=== PATIENT | male | born 1960 | race African-American/Black ===

== ENCOUNTER → 2019-08-29 10:07 | Outpatient (CLI) | payer OTHER, SELFPAY ==
[2019-08-29 10:42] LABS: Basophils % 0.6 % (0.1-2.0); Eosinophils # 0.3 K/mm3 (0.0-0.4); Eosinophils % 4.1 % (0.1-12.0); Hematocrit 42.3 % (42.0-52.0); Hemoglobin 13.8 g/dL (14.1-18.0); Lymphocytes # 1.6 K/mm3 (0.7-4.5); Lymphocytes % 24.7 % (10-50); Mean Corpuscular HGB Conc 32.6 g/dL (31.8-35.4); Mean Corpuscular Hemoglobin 27.5 pg (27.0-31.2); Mean Corpuscular Volume 84.5 fl (80-94); Monocytes # 0.3 K/mm3 (0.1-1.0); Monocytes % 4.6 % (1.7-9.3); Neutrophils # 4.4 K/mm3 (1.8-7.8); Neutrophils % 65.9 % (37.0-80.0); Platelet Count 357 K/mm3 (142-424); Red Blood Count 5.01 M/mm3 (4.60-6.20); Red Cell Distribution Width 15.6 % (11.5-17.5); White Blood Count 6.6 K/mm3 (4.8-10.8)
[2019-08-29 11:27] LABS: Alanine Aminotransferase 45 U/L (12-78); Albumin Level 4.6 g/dl (3.5-5.0); Albumin/Globulin Ratio 1.4 (1.1-1.8); Alkaline Phosphatase 130 U/L (38-126); Anion Gap 10.7 mEq/L (5-15); Aspartate Amino Transferase 38 U/L (17-59); Bilirubin,Total 0.4 mg/dl (0.2-1.3); Blood Urea Nitrogen 10 mg/dl (9-20); Calcium 9.7 mg/dl (8.4-10.2); Carbon Dioxide 30 mmol/L (22.0-30.0); Chloride 104 mmol/L (98-107); Estimated Glomerular Filt Rate 44 ml/min (>60); GFR (African American) 53 ML/MIN (>60); Globulin 3.4 g/dL (1.3-3.2); Glucose 114 mg/dl (74-100); Potassium 3.7 mmoL/L (3.5-5.1); Sodium 141 mmol/L (136-145)
[2019-08-29 11:56] LABS: Thyroid Stimulating Hormone 1.35 uIU/mL (0.465-4.68)
[2019-08-30 15:22] LABS: Testosterone,Total 315 ng/dL (264-916)
== END ==
PROVIDERS: Visit Provider Internal Medicine Adolescent Medicine
DX: R79.89 Other specified abnormal findings of blood chemistry (principal); R53.83 Other fatigue; R53.81 Other malaise
CPT/HCPCS: 36415; 80053; 84403; 84443; 85025

== ENCOUNTER → 2019-10-31 16:36 | Outpatient (CLI) | payer OTHER, SELFPAY ==
[2019-10-31 18:51] LABS: Chloride 101 mmol/L (98-107); Potassium 4.2 mmoL/L (3.5-5.1); Sodium 140 mmol/L (136-145)
[2019-10-31 18:54] LABS: Anion Gap 15.2 mEq/L (5-15); Blood Urea Nitrogen 12 mg/dl (9-20); Carbon Dioxide 28 mmol/L (22.0-30.0); Estimated Glomerular Filt Rate 34 ml/min (>60); GFR (African American) 41 ML/MIN (>60); Glucose 77 mg/dl (74-100)
[2019-10-31 19:10] LABS: 25-OH Vitamin D, Total 33.3 ng/mL (30-100)
== END ==
PROVIDERS: Visit Provider Internal Medicine Adolescent Medicine
DX: I10 Essential (primary) hypertension (principal); N40.1 Benign prostatic hyperplasia with lower urinary tract symptoms; E55.9 Vitamin D deficiency, unspecified
CPT/HCPCS: 36415; 80048; 82306

== ENCOUNTER → 2019-12-16 08:04 | Outpatient (CLI) | payer OTHER, SELFPAY ==
--- NOTE | 2019-12-16 08:05 | CA_ITS ---
APPROVED REPORT Upholstery Technician: Halley Madison RVT Study Quality: Good Indications: CKD,HTN Risk Factors Hypertension Renal Artery Doppler Origin (R) 118.7/ cm/sec Proximal (R) 96.8/ cm/sec Mid (R) 94.2/ cm/sec Distal (R) 78.5/ cm/sec Renal Aorta Ratio (R) 1.21 Segmental A. (R) 30.8/14.6 cm/sec RI: 0.52 Segmental A. Sup (R) 30.8/14.6 cm/sec Segmental A. Mid (R) 27.4/6.0 cm/sec Segmental A. Inf (R) 30.1/9.4 cm/sec Origin (L) 86.4/ cm/sec Proximal (L) 86.4/ cm/sec Mid (L) 109.9/ cm/sec Distal (L) 95.6/ cm/sec Renal Aorta Ratio (L) 1.12 Segmental A. (L) 47.8/20.8 cm/sec RI: 0.56 Segmental A. Sup (L) 47.8/20.8 cm/sec Segmental A. Mid (L) 37.3/16.1 cm/sec Segmental A. Inf (L) 39.3/19.2 cm/sec Renal Measurements Kidney Size (R) 10.2x6.1 cm Cortical Thickness (R) 1.4 cm Kidney Size (L) 10.5x5.4 cm Cortical Thickness (L) 1.4 cm Findings Study suggests no evidence of stenosis in the bilateral renal arteries. Study suggests no evidence of hydronephrosis. RI is 0.8 on the right and 0.6 on the left. Conclusion Study suggests no evidence of stenosis in the bilateral renal arteries. Study suggests no evidence of hydronephrosis. RI is 0.8 on the right and 0.6 on the left. Electronically signed by : Vargas Sullivan MD 12/16/2019 15:52:41
== END ==
PROVIDERS: PCP Internal Medicine Adolescent Medicine; Visit Provider Urology
DX: N18.9 Chronic kidney disease, unspecified (principal); R79.89 Other specified abnormal findings of blood chemistry
CPT/HCPCS: 93976

== ENCOUNTER → 2021-12-13 12:32 | Outpatient (CLI) | payer OTHER, SELFPAY ==
[2021-12-13 12:41] LABS: Microscopic, Urine URINE MICROSCOPIC (MICROSCOPIC)
[2021-12-13 13:03] LABS: Basophils # 0.1 K/mm3 (0-0.2); Basophils % 0.8 % (0.1-2.0); Eosinophils # 0.3 K/mm3 (0.0-0.4); Eosinophils % 4.2 % (0.1-12.0); Hematocrit 42.8 % (42.0-52.0); Hemoglobin 13.4 g/dL (14.1-18.0); Lymphocytes # 1.7 K/mm3 (0.7-4.5); Lymphocytes % 24.4 % (10-50); Mean Corpuscular HGB Conc 31.3 g/dL (31.8-35.4); Mean Corpuscular Hemoglobin 29.5 pg (27.0-31.2); Mean Corpuscular Volume 94.2 fl (80-94); Mean Platelet Volume 8.6 fl (7.4-10.4); Monocytes # 0.4 K/mm3 (0.1-1.0); Monocytes % 5.9 % (1.7-9.3); Neutrophils # 4.6 K/mm3 (1.8-7.8); Neutrophils % 64.7 % (37.0-80.0); Platelet Count 369 K/mm3 (142-424); Red Blood Count 4.55 M/mm3 (4.60-6.20); Red Cell Distribution Width 14.8 % (11.5-17.5); White Blood Count 7.1 K/mm3 (4.8-10.8)
[2021-12-13 13:09] LABS: Appearance,Urine CLEAR (Clear); Bilirubin,Urine Negative (Negative); Blood, Urine Negative (Negative); Color,Urine YELLOW (Yellow); Glucose,Urine (UA) Negative (Negative); Ketones,Urine Negative (Negative); Leukocyte Esterase,Urine Negative (Negative); Nitrate,Urine Negative (Negative); Protein,Urine 1+ (Negative); Specific Gravity, Urine 1.015 (1.005-1.030)
[2021-12-13 13:20] LABS: Bacteria,Urine Trace /lpf; Squamous Epithelial Cell,Urine Occasional #/hpf (0-5)
[2021-12-13 13:32] LABS: Creatinine,Urine Random 220 mg/dL (Not Estab.)
[2021-12-13 13:34] LABS: Albumin Level 4.1 g/dl (3.5-5.0); Anion Gap 11.8 mEq/L (5-15); Blood Urea Nitrogen 15 mg/dl (9-20); Calcium 9.1 mg/dl (8.4-10.2); Carbon Dioxide 28 mmol/L (22.0-30.0); Chloride 105 mmol/L (98-107); Estimated Glomerular Filt Rate 32 ml/min (>60); GFR (African American) 39 ML/MIN (>60); Glucose 143 mg/dl (74-100); Phosphorous 3.2 mg/dl (2.5-4.5); Potassium 3.8 mmoL/L (3.5-5.1); Sodium 141 mmol/L (136-145)
[2021-12-13 13:46] LABS: Intact Parathyroid Hormone 78.3 pg/mL (7.5-53.5)
[2021-12-13 13:52] LABS: 25-OH Vitamin D, Total 71.4 ng/mL (30-100)
== END ==
PROVIDERS: PCP Internal Medicine Adolescent Medicine; Visit Provider Internal Medicine Nephrology
DX: N18.4 Chronic kidney disease, stage 4 (severe) (principal)
CPT/HCPCS: 36415; 80069; 81001; 82306; 82570; 83970; 84155; 85025

== ENCOUNTER → 2021-12-16 12:36 | Outpatient (POV) | payer OTHER, SELFPAY | PROVIDERS: Visit Provider Internal Medicine Nephrology | DX: Z00.00 Encounter for general adult medical examination without abnormal findings (principal) ==

== ENCOUNTER → 2022-01-13 15:27 | Outpatient (CLI) | payer OTHER, SELFPAY ==
--- NOTE | 2022-01-13 15:36 | US_ITS ---
FINAL REPORT CLINICAL HISTORY: CHRONIC RENAL DISEASE STAGE IV; HYPERTENSION FINDINGS: US RETROPERITONEAL The right kidney measures 10.8 cm in length. It is normal in echogenicity. There is no hydronephrosis. The left kidney measures 10.5 cm in length. It is normal in echogenicity. There is no hydronephrosis. The spleen is unremarkable. IMPRESSION: Unremarkable exam. Reviewed, Interpreted and Dictated by Clarke Nj MD Transcribed by Louisa Turner Authenticated and [facility]
== END ==
PROVIDERS: PCP Internal Medicine Adolescent Medicine; Visit Provider Internal Medicine Nephrology
DX: N18.4 Chronic kidney disease, stage 4 (severe) (principal)
CPT/HCPCS: 76770

== ENCOUNTER → 2022-04-21 12:24 | Outpatient (CLI) | payer OTHER, SELFPAY ==
[2022-04-21 13:35] LABS: Albumin Level 4.3 g/dl (3.5-5.0); Chloride 102 mmol/L (98-107); Potassium 3.4 mmoL/L (3.5-5.1); Sodium 139 mmol/L (136-145)
[2022-04-21 13:38] LABS: Anion Gap 12.4 mEq/L (5-15); Blood Urea Nitrogen 16 mg/dl (9-20); Calcium 8.9 mg/dl (8.4-10.2); Carbon Dioxide 28 mmol/L (22.0-30.0); Estimated Glomerular Filt Rate 34 ml/min (>60); GFR (African American) 41 ML/MIN (>60); Glucose 101 mg/dl (74-100); Phosphorous 3.2 mg/dl (2.5-4.5)
[2022-04-21 14:27] LABS: Creatinine,Urine Random 164 mg/dL (Not Estab.)
[2022-04-21 16:28] LABS: Microalbumin/Creatinine Ratio 352.8
[2022-04-23 21:07] LABS: Cystatin C 1.26 mg/L (0.72-1.16)
== END ==
LOC: LAB 12:26
PROVIDERS: PCP Internal Medicine Adolescent Medicine; Visit Provider Internal Medicine Nephrology
DX: N18.4 Chronic kidney disease, stage 4 (severe) (principal); N18.32 Chronic kidney disease, stage 3b; I10 Essential (primary) hypertension; N25.0 Renal osteodystrophy; R80.1 Persistent proteinuria, unspecified
CPT/HCPCS: 36415; 80069; 82043; 82570; 82610

== ENCOUNTER → 2022-04-24 15:46 | Outpatient (POV) | payer OTHER, SELFPAY | PROVIDERS: Visit Provider Internal Medicine Nephrology | DX: Z00.00 Encounter for general adult medical examination without abnormal findings (principal) ==

== ENCOUNTER → 2022-07-28 14:46 | Outpatient (POV) | payer OTHER, SELFPAY | PROVIDERS: Visit Provider Internal Medicine Nephrology | DX: Z00.00 Encounter for general adult medical examination without abnormal findings (principal) ==

== ENCOUNTER → 2022-09-01 15:00 | Outpatient (CLI) | payer OTHER, SELFPAY | LOC: SL 15:00 | PROVIDERS: PCP Internal Medicine Adolescent Medicine; Visit Provider Internal Medicine Adolescent Medicine | DX: G47.30 Sleep apnea, unspecified (principal) | CPT/HCPCS: G0399 ==

== ENCOUNTER 2023-01-28 08:39 | Day surgery (SDC) | payer OTHER, SELFPAY ==
[2022-11-19 15:21] VITALS: BMI 36.8
[2023-01-28] VITALS (7 sets, daily range): BP systolic 112–151; BP diastolic 61–96; PULSE 72–87; RESP 16–20; TEMP 36.6; O2SAT 94–100
--- NOTE | 2023-01-28 11:38 | HMH.SCOPE ---
Procedure: Date: 01/28/23 Patient Date of :: 1960 Procedure Performed:: Colonoscopy Indications:: Screening colonoscopy Performing Provider:: Trace Justin MD Referring Provider:: Danial Win MD Sedation:: See RN records Procedure:: After placing the patient in the left lateral decubitus position, the colonoscopy was gently inserted into the rectum and under direct visualization advanced to the cecum which was identified by transillumination in the right lower quadrant, identification of the ileocecal valve, appendiceal orifice, and cecal strap. Color, texture, mucosa, and anatomy of the colon were carefully examined with the scope. Findings:: Anal canal: normal Rectum: Hemorrhoids Sigmoid colon: Diverticulosis. Pedunculated polyp 11-12 mm in size. Removed with hot snare polypectomy. Fair preparation Descending colon: Seven polyps measuring between 5-12 mm in size. Removed with hot snare polypectomy. One 5 mm polyp was not retrieved. Diverticulosis Splenic flexure: normal Transverse colon: Two polyps less than 10 mm in size. Removed with hot snare polypectomy Hepatic flexure: normal Ascending colon: normal without polyps or inflammatory changes Cecum: Polypoid lesion less than 10 mm in size. Removed completely by snare polypectomy. Fair bowel preparation Terminal ileum: not visualized Impression: Multiple colon polyps (11 polyps) Diverticulosis Fair preparation Colon spasms Recommendations:: Await pathology results Higher fiber diet Repeat colonoscopy in 1 year Complications:: None Estimated blood obtained (mL): 0 Colonoscopy Component Colonoscopy Component Was a colonoscopy performed during today's procedure?: Yes Recommended follow up colonoscopy of at least 10 years?: Yes
--- NOTE | 2023-01-28 12:22 | EXP.ANES.CKL ---
[facility] Disclaimer: The information contained in this section may have been updated after the patient was seen, as this information can be updated by other users. Medical History Coronary artery disease History of gastroesophageal reflux (GERD) Hyperlipidemia Hypertension Insomnia Kidney disease, chronic, stage III (GFR 30-59 ml/min) Pancreatitis Surgical History History of nasal surgery Family History Other Family history of diabetes mellitus type II Family history of heart disease Family history of hypertension Family history of myocardial infarction Social History Smoking Status: Former smoker tobacco type: smokeless tobacco how long ago did patient quit smokin years ago alcohol intake: never substance use type: denies use current occupational status: employed Travel in the last 8 weeks: Inside the [facility] household members: none housing: house lives independently: Yes marital status: single education level: high school service: Yes ([employer]) retirement: No caffeine: Yes special martin needs: No agree to transfusion: No do you feel safe at home: Yes victim of physical abuse: No victim of emotional abuse: No victim of sexual abuse: No would you like helpful sources: No [facility] Anesthesia Checklist Patient Identification Patient Identification: Arm Band and Verbal (Name & ) Structural Data Admitted From: Home Planned Operative Procedure/s: colonoscopy Consent for Planned Operative Procedure(s) Verified: Yes Verified Documents: Surgical Consent and History and Physical NPO Status Verified Time NPO: 23:00 Additional verifications Patient : No Anesthesia Reactions: No Hx Blood Transfusions: No Blood Transfusion Reaction: No Cephalosporin Allergy: No Previous Colonoscopy: No Cardiovascular Assessment Heart Sounds: S1 & S2 Pulse Rhythm: Irregular Peripheral Edema: No Airway Assessment Mallampati Score:: Class II C-Spine Mobility Assessed: Yes TMJ Mobility Assessed: Yes Dentition: Good Dentition (Nothing loose per pt.) Neurological Assessment Level of Consciousness: Awake Hx Seizures: No Numbness or tingling in extremities: No Anesthesia Plan Anesthesia Risk discussed: Yes Anesthesia Plan: Verified ASA Class: II Anesthesia Type: MAC
--- NOTE | 2023-01-28 12:24 | EXP.ANES.I ---
[facility] Anesthesia Record Part I Anesthesia Record I Intake, IV Amount: 400 Hydration: Adequate Estimated blood loss (mL): 0 Urine output (mL): 0 Blood Products used (#): none Blood Pressure: 132/87 SaO2: 94 Pulse Rate: 84 Airway Patency: Patent Respiratory Rate: 20 Temperature: 97.8 F Patient is:: Awake, Drowsy and Stable Stable to PACU at:: 11:43
== END 2023-01-28 12:23 | disposition home or self-care (01) ==
PROVIDERS: PCP Internal Medicine Adolescent Medicine; Visit Provider Internal Medicine
PROC: 0DJD8ZZ Inspection of Lower Intestinal Tract, Via Natural or Artificial Opening Endoscopic (ICD-10-PCS; CPT 45378; principal; 2023-01-28 10:00)
DX: Z12.11 Encounter for screening for malignant neoplasm of colon (principal); K64.8 Other hemorrhoids; K57.30 Diverticulosis of large intestine without perforation or abscess without bleeding; D12.4 Benign neoplasm of descending colon; D12.0 Benign neoplasm of cecum; D12.3 Benign neoplasm of transverse colon; D12.5 Benign neoplasm of sigmoid colon
CPT/HCPCS: 45385

== ENCOUNTER 2024-08-11 10:42 | Outpatient (CLI) | payer MEDICARE, SELFPAY ==
--- OUTSIDE RECORDS SUMMARY | 2024-08-11 10:47 | XMS_ITS | Encounter Summary ---
Author Name [facility] [place] [facility] [place] [facility] [place] Address [address] [place] [address] Selected Encounter This section includes the information on record at [place] for the Encounter. Date/Time Encounter Type Encounter Description Reason Provider Source Apr 05, 2024 11:10 AM Outpatient Encounter ADMIN PAT ACTIVTIES (MASNONCT) DINORAH KNOWLESE Encounter Template Text not used by [facility] Encounter Notes: All associated encounter notes This section contains the clinical notes associated to the Encounter. Date/Time Encounter Note(s) Provider Source Apr 05, 2024 11:11 AM [facility] MARIA M TRY NOTE: LOCAL TITLE: V9 [facility] NICOLE TELEPHONE APPOINTMENT NOTE STANDARD TITLE: [employer] [facility] REGISTRY NOTE DATE OF NOTE: APR 05, 2024@11:11 ENTRY DATE: APR 05, 2024@11:11:11 AUTHOR: DINORAH KNOWLES EXP COSIGNER: URGENCY: STATUS: COMPLETED 64y.o. MALE patient presents for Toxic Exposure Screen via telephone in lieu of face to face. Spoke to patient and confirmed patient identity using patient identifiers listed below: Patient Identifiers used: Full Name and Address, , Full SSN Lasdt 4: 1435 : 1960 Patient's verbal consent obtained: Yes Patient is in a safe and private Location: Yes Toxic Exposure Screening: The Pratts/caregiver was asked if they believe the experienced any toxic exposure(s), such as Airborne Hazards and Open [place], [place] War related exposures, Agent [place], Radiation, contaminated water at [place] or other such exposures, while serving in the Armed Forces. Pratts has no concerns about toxic exposure(s) while serving in the Armed Forces. The Pratts/caregiver was informed that we will continue to ask this screening question every 5 years. They can contact their provider/healthcare team if they have concerns about exposures and would like to be screened sooner. Printed information was offered and provided if desired. /faith/ DINORAH KNOWLES MD,MPH [facility] Signed: 04/05/2024 11:12 DINORAH KNOWLES-JODY [facility]
--- OUTSIDE RECORDS SUMMARY | 2024-08-11 10:48 | XMS_ITS | Continuity of Care Document ---
Author Organization [facility] Phone Care Team Providers Care Industrial Sweeper Cleaner Name Role Phone CASE, JOSEPH Kimbrough Admitting CASE, JOSEPH W Primary Attending CASE, JOSEPH W Surgeon MADHAVI DICKERSON Primary Care ALLERGIES AND ADVERSE REACTIONS ALLERGIES AND ADVERSE REACTIONS Code System Allergy Substance Adverse Reaction Date Reaction (Severity) Comment Status Reported By Updated By No Known Allergies [id number] on May 20, 2024 4:21:47 PM [place] RESULTS Patient: FANNY Zee Date of : 1960 0 LABORATORY RESULTS Information is not available LABORATORY NARRATIVE RESULTS Information is not available RADIOLOGY RESULTS Information is not available PATHOLOGY NARRATIVE RESULTS ORDER 200: PATHOLOGY SPECIME N (LOINC: 71600-3) ORDER DATE: May 20, 2024 5:33:00 PM UTC Specimen Source: PATH Specimen Type: Refer to path ology laboratory PERFORMING LAB: [address] [id number] Final Result Date: May 27, 2024 2:53:00 PM UTC (TECH: [facility] [place] TEST: PATHOLOGY SPECIMEN SEE SCANNED RPT MICROBIOLOGY RESULTS No Micro Labs/Results Exist for Patient BLOOD ADMIN RESULTS Information is not available MEDICATIONS HOME MEDICATIONS Status [facility] Medication Dose Route Frequency Dates Comments Reported By Updated By Active [id number] 17574 64444 1 Carvedilol Oral Tablet 25 MG 25.0 MG ORAL BID Last Dose: May 19, 2024 5:00:00 PM [place] [id number] on May 20, 2024 4:23:19 PM [facility] Active 238343 46520 44185 5 Sertraline HCl Oral Tablet 100 MG 100.0 MG ORAL DAILY Last Dose: May 19, 2024 1:00:00 PM [place] [id number] on May 20, 2024 4:24:10 PM UTC Active 403584 34895 09026 0 Wellbutrin XL Oral Tablet Extended Release 24 Hour 300 MG 300.0 MG ORAL DAILY Last Dose: May 19, 2024 1:00:00 PM [facility] [id number] on May 20, 2024 4:24:49 PM [facility] Active 803080 45107 41173 2 Omeprazole Oral Capsule Delayed Release 20 MG 20.0 MG ORAL DAILY Last Dose: May 19, 2024 1:00:00 PM [facility] [id number] on May 20, 2024 4:23:57 PM [facility] Active 97888 11108 1 Aspirin 81 Oral Tablet Chewable 81 MG 81.0 MG ORAL DAILY Last Dose: May 19, 2024 1:00:00 PM [facility] [id number] on May 20, 2024 4:22:50 PM [facility] Active 861754 15771 53160 6 Venlafaxine HCl ER Oral Capsule Extended Release 24 Hour 37.5 MG 37.5 MG ORAL DAILY Last Dose: May 19, 2024 1:00:00 PM [facility] [id number] on May 20, 2024 4:24:40 PM [facility] Active 226715 11555 71351 2 Valsartan Oral Tablet 160 MG 160.0 MG ORAL DAILY Last Dose: May 19, 2024 1:00:00 PM [facility] [id number] on May 20, 2024 4:24:31 PM [facility] Active 214699 35219 76185 1 traZODone HCl Oral Tablet 100 MG 100.0 MG ORAL TIDPRN Last Dose: May 19, 2024 1:00:00 AM [facility] [id number] on May 20, 2024 4:24:21 PM [facility] Active 321816 69246 09111 6 Atomoxetine HCl Oral Capsule 100 MG 600.0 MG ORAL DAILY Last Dose: May 19, 2024 1:00:00 PM [facility] [id number] on May 20, 2024 4:23:48 PM [facility] Active 723859 17506 67012 0 Atorvastatin Calcium Oral Tablet 20 MG 20.0 MG ORAL DAILY Last Dose: May 19, 2024 1:00:00 PM [facility] [id number] on May 20, 2024 4:23:02 PM [facility] DISCHARGE MEDICATIONS Status [facility] Medication Dose Route Frequency Dates Comments Physician Updated By No Discharge Medication Info rmation Available INPATIENT MEDICATIONS Status [facility] Medication Dose Route Frequency Rat e Quantity Dates Comments Physician Updated By Discont inued [id number] 7803 8019 704 LACTATED RINGERS SOLN 1000. 0 ML INTRAV ENOUS ONE TIME ADMINISTRA TION (UNSCHEDUL ED) 25.0 ML/HR Start: 2024 9:44:0 0 PM UTC End: 2024 10:47: 00 PM UTC CONY BLISS [id number] on May 21, 2024 5:25:00 AM UTC Discont inued 6374951 8201 8004 904 sodium chloride 0.9% SOLN 1000. 0 ML INTRAV ENOUS ONE TIME ADMINISTRA TION (UNSCHEDUL ED) 25.0 ML/HR Start: 2024 9:44:0 0 PM UTC End: 2024 10:47: 00 PM UTC DEPJoey BLISS [id number] on May 21, 2024 5:25:00 AM UTC Discont inued 6643368 1356 9226 720 labetalol (TRANDATE) MDV 5 MG/ML SOLN 100.0 MG INTRAV ENOUS ONE TIME ONLY (SCHEDULED DOSE) Start: 2024 4:17:0 0 PM UTC End: 2024 4:17:0 0 PM UTC CASE JOSEPH Kimbrough INTERF ED on May 20, 2024 4:19:00 PM UTC Discont inued 9613551 4278 9226 720 LABETALOL HCL 5 MG/ML SOLN 100.0 MG INTRAV ENOUS ONE TIME ONLY (SCHEDULED DOSE) 4.167 MG/HR Start: 2024 8:55:0 0 PM UTC End: 2024 8:56:4 7 PM UTC CASE JOSEPH W [id number] on May 20, 2024 8:56:00 PM UTC Discont inued 6940656 1120 5034 542 PROPOFOL 500 MG/50ML EMUL 500.0 MG INTRAV ENOUS ONE TIME ONLY (SCHEDULED DOSE) 20.833 MG/HR Start: 2024 8:55:0 0 PM UTC End: 2024 8:56:4 7 PM UTC CASE JOSEPH Kimbrough [id number] on May 20, 2024 8:56:00 PM UTC Discont inued 2413092 4329 3020 202 LIDOCAINE HCL 2 % SOLN 2.0 ML ONE TIME ONLY (SCHEDULED DOSE) 0.083 ML/HR Start: 2024 8:55:0 0 PM UTC End: 2024 8:56:4 7 PM UTC CASE JOSEPH Kimbrough [id number] on May 20, 2024 8:56:00 PM UTC Discont inued 028129 3242 8011 704 LACTATED RINGERS SOLN 1000. 0 ML IV CONTIN UOUS ONE TIME ONLY (SCHEDULED DOSE) Start: 2024 6:27:0 0 PM UTC End: 2024 6:27:0 0 PM UTC CASE JOSEPH Kimbrough INTERFAC ED on May 20, 2024 5:00:00 AM UT SOCIAL HISTORY SOCIAL HISTORY SNOMED-CT Social History Element Description Effective Dates Offered Cessation Comment UpdatedBy [id number] Current Tobacco smoking status Former Smoker [id number] on May 13, 2024 7:24:25 PM UT SOCIAL HISTORY - Gender Sex: Male SOCIAL HISTORY - Status : status i nformation is not available Intention in Next Year: intention information is not available SOCIAL HISTORY - Sexual Behavior Sexual Orientation Gender Identity SNOMED-CT Description SNO MED -CT Description Activity Level No of Partners Partner Type UpdatedBy Information is not available VITAL SIGNS PATIENT VITAL SIGNS This section displays the mo st recent value for each vital sign as of May 28, 2024 3:03:14 AM UT Loinc Code Vital Sign Activity Date Result Updated By 8302-2 Body height May 20, 2024 4:22:11 PM UT 172.72 cm (68.0 in) [id number] on May 20, 2024 4:22:11 PM [facility] 18765-1 Body mass index (BMI) [Ratio] May 20, 2024 4:22:11 PM UTC 41.264 kg/m2 [id number] on May 20, 2024 4:22:11 PM [facility] 3140-1 Body Surface Area Derived From Formula May 20, 2024 4:22:11 PM UTC 2.327 m2 [id number] on May 20, 2024 4:22:11 PM [facility] 49904-0 Body weight Measured May 20, 2024 4:22:11 PM [facility] 123.1 kg (271.0 lb) [id number] on May 20, 2024 4:22:11 PM [facility] PEDIATRIC GROWTH CHART - VITAL SIGNS This section displays Head C ircumference Percentile, Weight for Length Percentile and BMI Percentile Loinc Code Pediatric Measure Age (Months) Result Updat ed By No Pediatric Growth Chart Pe rcentile Information Available. PROCEDURES PATIENT PROCEDURES CODE SYSTEM DESCRIPTION STATUS PERFORMED DATE UPD ATED BY [id number] SNOMED-CT Colonoscopy completed May 20 5:00:00 AM [facility] [id number] on May 20, 2024 5:22:14 PM [facility] PROCEDURE NOTE Procedure Note information i s not available. HEALTH CONCERNS Problems Concern Status Health Concern problem infor mation not available. Smoking Status Status Years Used Consumed packs p er day Health Concern smoking histo ry information not available. Family History Concern Status Health Concern family histor y information not available. ENCOUNTERS ENCOUNTER INFORMATION Reason for Visit DX COLON Admission May 20, 2024 2:47:[address] [id number] Discharge May 20, 2024 10:47:00 PM [facility] DISCHARGED TO HOME OR SELF CARE ENCOUNTER DIAGNOSES Notes information is not gabrielle ilable. Code System Diagnosis Onset Date Diagnosis information is not available. ABSTRACT DIAGNOSES Code System Diagnosis Updated By Z12.11 ICD10 ENCOUNTER FOR SC REENING FOR MALIGNANT NEOPLASM OF COLON [id number] on May 24, 2024 2:35:22 PM [facility] Z86.0100 ICD10 PERSONAL HISTORY OF COLON POLYPS, UNSPECIFIED [id number] on May 24, 2024 2:35:22 PM [facility] Z12.11 ICD10 ENCOUNTER FOR SC REENING FOR MALIGNANT NEOPLASM OF COLON [id number] on May 24, 2024 2:35:22 PM [facility] D12.2 ICD10 BENIGN NEOPLASM OF ASCENDING COLON [id number] on May 24, 2024 2:35:22 PM [facility] K57.30 ICD10 DIVERTICULOSIS O F LARGE INTESTINE WITHOUT PERFORATION OR ABSCESS WITHOUT BLEEDING [id number] on May 24, 2024 2:35:22 PM [facility] I25.2 ICD10 OLD MYOCARDIAL INFARCTION AA [id number] on May 24, 2024 2:35:22 PM UT I25.10 ICD10 ATHEROSCLEROTIC HEART DISEASE OF [place] CORONARY ARTERY WITHOUT ANGINA PECTORIS [id number] on May 24, 2024 2:35:22 PM UTC E78.5 ICD10 HYPERLIPIDEMIA, UNSPECIFIED [id number] on May 24, 2024 2:35:22 PM UT G47.30 ICD10 SLEEP APNEA, UNSPECIFIED AAD 6617 on May 24, 2024 2:35:22 PM UTC K21.9 ICD10 GASTRO-ESOPHAGEA L REFLUX DISEASE WITHOUT ESOPHAGITIS [id number] on May 24, 2024 2:35:22 PM UT E66.01 ICD10 MORBID (SEVERE) OBESITY DUE TO EXCESS CALORIES [id number] on May 24, 2024 2:35:22 PM UT I12.9 ICD10 HYPERTENSIVE CHR ONIC KIDNEY DISEASE WITH STAGE 1 THROUGH STAGE 4 CHRONIC KIDNEY DISEASE, OR UNSPECIFIED CHRONIC KIDNEY DISEASE [id number] on May 24, 2024 2:35:22 PM UT N18.4 ICD10 CHRONIC KIDNEY D ISEASE, STAGE 4 (SEVERE) [id number] on May 24, 2024 2:35:22 PM [facility] Z79.82 ICD10 MANAGER FLIGHT (CURRENT) USE OF A SPIRIN [id number] on May 24, 2024 2:35:22 PM [facility] Z79.899 ICD10 OTHER MCC (CURRENT) DR UG THERAPY [id number] on May 24, 2024 2:35:22 PM [facility] CARE TEAM Care Industrial Sweeper Cleaner Role JOSEPH CASE Admitting JOSEPH WADDELL Primary Attending JOSEPH CASE Surgeon MADHAIV DICKERSON Primary Care CARE TEAM CARE yield engineer Role on Team Status Start Date End Date Update d By CASE JOSEPH ORTIZ Surgeon normal May 20, 2024 2:47:00 PM [facility] May 20, 2024 10:47:00 PM [facility] [id number] on May 24, 2024 2:35:33 PM [facility] JAYLA HEDNRICKSON PCP normal May 09 3:36:33 PM [facility] May 20, 2024 10:47:00 PM [facility] [id number] on May 24, 2024 2:35:33 PM [facility] CASE JOSEPH ORTIZ Attending normal May 09, 2024 3:36:33 PM [facility] May 20, 2024 10:47:00 PM [facility] [id number] on May 24, 2024 2:35:33 PM [facility] CASE JOSEPH ORTIZ Admitting normal May 09, 2024 3:36:33 PM [facility] May 20, 2024 10:47:00 PM [facility] [id number] on May 24, 2024 2:35:33 PM [facility]
--- OUTSIDE RECORDS SUMMARY | 2024-08-11 10:48 | XMS_ITS | Encounter Summary ---
Author Name [facility] [place] [facility] [place] Address [address] [place] [id number] Selected Encounter This section includes the information on record at [place] for the Encounter. Date/Time Encounter Type Encounter Description Reason Pro vider Source Aug 12, 2023 11:57 AM Outpatient Encounter ADMIN PAT ACTIVTIES (MASNONCT) [facility] Encounter Template Text not used by [facility] Encounter Notes: All associated encounter notes This section contains the clinical notes associated to the Encounter. Date/Time Encounter Note(s) Provider Source Aug 12, 2023 11:57 AM TELEPHONE ENCOUNTE R NOTE: LOCAL TITLE: TELEPHONE CARE NOTE STANDARD TITLE: TELEPHONE ENCOUNTER NOTE DATE OF NOTE: AUG 12, 2023@11:57 ENTRY DATE: AUG 12, 2023@11:57:52 AUTHOR: FLEX GAITAN EXP COSIGNER: URGENCY: STATUS: COMPLETED Patient transferred to Health Benefits/Eligibility. Reason: /faith/ FLEX GAITAN PATIENT SERVICES JUNIOR MANUFACTURING ENGINEER Signed: 08/12/2023 11:58 [facility]ITAL[facility]
--- OUTSIDE RECORDS SUMMARY | 2024-08-11 10:48 | XMS_ITS | Continuity of Care Document ---
Author Name [facility] Organization [facility] Care Team Providers Care Coremaker Experimental Name Role Phone [facility] Unavailable Unavailable Problems Combined list of problems from Department of Defense and Veterans Affairs facilities. It does not include entries that were removed or entered in error. Problem Status Onset Date Problem Type Date of Resolution Comments Source Diagnosis: ICD-10-CM Z71.89 Other specified counseling Active Diagnosis [facility] Encounters Combined list of: 1) Encounters from Department of Veterans Affairs facilities going backup to the last 18 months, not all [place] inpatient encounters are included; 2) Encounters from the Department of [facility] facilities going backup to 280 months. Location Location Details Encounter Type Encounter Number Reason For Visit Attending Provider ADM Date DC Date Status Disposition Source [facility] Outpatient Encounter [id number] 08/06 [place] [facility] PHONE CALL 11-20 MIN [id number] Diagnos is: ICD-10- CM Z71.89 Other specifi ed rehabilitation services counselor KEREN Anderson P 08/06 [place] [facility] Outpatient Encounter [id number] 08/11 [place] Outpatient Encounter [id number] RUBIO KNOWLES IS Y 04/05 [place]
[2024-08-11 11:22] LABS: Chloride 103 mmol/L (98-107); Sodium 138 mmol/L (136-145)
[2024-08-11 11:23] LABS: Potassium 4.9 mmoL/L (3.5-5.1)
[2024-08-11 11:25] LABS: Alanine Aminotransferase 76 U/L (12-78); Albumin/Globulin Ratio 1.2 (1.1-1.8); Alkaline Phosphatase 94 U/L (38-126); Anion Gap 14.9 mEq/L (5-15); Aspartate Amino Transferase 64 U/L (17-59); Bilirubin,Total 0.3 mg/dl (0.2-1.3); Blood Urea Nitrogen 24 mg/dl (9-20); Carbon Dioxide 25 mmol/L (22.0-30.0); Estimated Glomerular Filt Rate 24 ml/min (>60); GFR (African American) 29 ML/MIN (>60); Globulin 3.3 g/dL (1.3-3.2); Total Protein,Serum 7.3 g/dl (6.3-8.2)
[2024-08-11 11:26] LABS: Calcium 9.3 mg/dl (8.4-10.2); Glucose 104 mg/dl (74-100)
[2024-08-11 11:39] LABS: Hemoglobin A1C 6.5 % (4.0-6.0)
== END 2024-08-11 23:59 | disposition home or self-care (01) ==
LOC: LAB 10:45
PROVIDERS: PCP Internal Medicine Adolescent Medicine; Visit Provider Internal Medicine Adolescent Medicine
DX: N18.4 Chronic kidney disease, stage 4 (severe) (principal); R73.09 Other abnormal glucose
CPT/HCPCS: 36415; 80053; 83036